=== PATIENT | female | born 1970 | race Two or more races ===

== ENCOUNTER → 2018-01-27 | Outpatient (CLI) | payer BC ==
[2018-01-27 08:42] LABS: Basophils # (auto) 0 uL; Basophils % (auto) 0.7 % (0.0-2.0); Eosinophils # (auto) 0.1 uL; Eosinophils % (auto) 2.7 % (0.0-7.0); Hematocrit 38.1 % (36.0-46.0); Hemoglobin 12.1 g/dL (12.2-16.2); Lymphocytes # (auto) 1.2 uL; Lymphocytes % (auto) 21.8 % (10.0-50.0); Mean Corpuscular Hemoglobin 27.2 pg (28.0-32.0); Mean Corpuscular Hgb Conc. 31.7 g/dL (32.0-36.0); Mean Corpuscular Volume 85.9 fL (80.0-100.0); Monocytes # (auto) 0.3 uL; Monocytes % (auto) 5.5 % (0.0-12.0); Neutrophils # (auto) 3.8 uL; Neutrophils % (auto) 69.3 % (37.0-80.0); Nucleated Red Blood Cells % 0.1 %; Platelet Count (auto) 222 10^3/uL (140-450); Red Blood Cells 4.43 10^6/uL (4.0-5.20); Red Cell Distribution Width 14.6 % (11.8-14.3); White Blood Cell 5.5 10^3/uL (4.4-10.8)
[2018-01-27 08:49] LABS: Urine Bacteria NONE SEEN /hpf (None Seen); Urine Blood 1+ /uL (Negative); Urine Specific Gravity 1.015 (1.001-1.035); Urine WBC 5 /hpf (0 - 5)
[2018-01-27 09:09] LABS: Albumin 3.6 g/dL (3.4-5.0); BUN/Creatinine Ratio 13.6; Bilirubin, Total 0.4 mg/dL (0.2-1.0); Calcium 8.6 mg/dL (8.5-10.1); Potassium 4.3 mmol/L (3.5-5.1); Total Protein 7.4 g/dL (6.4-8.2)
== END | disposition home or self-care (01) ==
LOC: LAB 08:11
PROVIDERS: ATTEND Internal Medicine
DX: E03.9 Hypothyroidism, unspecified (principal); R00.2 Palpitations
CPT/HCPCS: 36415; 80053; 80061; 81001; 83036; 84439; 84443; 85025; 85652

== ENCOUNTER → 2018-07-14 | Outpatient (CLI) | payer BC, OTHER ==
[2018-07-14 11:25] LABS: Hepatitis B Surface Antibody Positive
== END | disposition home or self-care (01) ==
LOC: LAB 10:25
PROVIDERS: ATTEND Nurse Practitioner
DX: S61.255A Open bite of left ring finger without damage to nail, initial encounter (principal); Z77.21 Contact with and (suspected) exposure to potentially hazardous body fluids; X58.XXXA Exposure to other specified factors, initial encounter; Y93.89 Activity, other specified; Y92.89 Other specified places as the place of occurrence of the external cause; Y99.8 Other external cause status
CPT/HCPCS: 36415; 86703; 86706; 86803; 87340

== ENCOUNTER → 2018-09-02 | Outpatient (CLI) | payer OTHER | END | disposition home or self-care (01) | LOC: LAB 09:16 | PROVIDERS: ATTEND Preventive Medicine Preventive Medicine/Occupational Environmental Medicine | DX: S61.233A Puncture wound without foreign body of left middle finger without damage to nail, initial encounter (principal); Z77.21 Contact with and (suspected) exposure to potentially hazardous body fluids; X58.XXXA Exposure to other specified factors, initial encounter; Y93.89 Activity, other specified; Y92.89 Other specified places as the place of occurrence of the external cause; Y99.8 Other external cause status | CPT/HCPCS: 36415; 86703; 86706; 86803; 87340 ==

== ENCOUNTER → 2018-09-05 | Outpatient (CLI) | payer BC ==
[2018-09-05 10:36] LABS: Basophils # (auto) 0 uL; Basophils % (auto) 0.5 % (0.0-2.0); Eosinophils # (auto) 0.1 uL; Eosinophils % (auto) 2.6 % (0.0-7.0); Hematocrit 39.9 % (36.0-46.0); Lymphocytes # (auto) 1.6 uL; Lymphocytes % (auto) 30.9 % (10.0-50.0); Mean Corpuscular Hemoglobin 30.1 pg (28.0-32.0); Mean Corpuscular Hgb Conc. 32.6 g/dL (32.0-36.0); Mean Corpuscular Volume 92.4 fL (80.0-100.0); Monocytes # (auto) 0.5 uL; Monocytes % (auto) 9.2 % (0.0-12.0); Neutrophils % (auto) 56.8 % (37.0-80.0); Nucleated Red Blood Cells % 0.1 %; Platelet Count (auto) 185 10^3/uL (140-450); Red Blood Cells 4.32 10^6/uL (4.0-5.20); Red Cell Distribution Width 14.3 % (11.8-14.3); White Blood Cell 5.2 10^3/uL (4.4-10.8)
[2018-09-05 10:49] LABS: Potassium 3.8 mmol/L (3.5-5.1)
[2018-09-05 10:54] LABS: Calcium 8.7 mg/dL (8.5-10.1)
[2018-09-05 10:59] LABS: Albumin 3.9 g/dL (3.4-5.0); Bilirubin, Total 0.4 mg/dL (0.2-1.0); Total Protein 7.8 g/dL (6.4-8.2)
[2018-09-05 11:03] LABS: Free T4 (Free Thyroxine) 1.18 ng/dL (0.89-1.76)
== END | disposition home or self-care (01) ==
LOC: LAB 10:07
PROVIDERS: ATTEND Internal Medicine
DX: Z86.39 Personal history of other endocrine, nutritional and metabolic disease (principal)
CPT/HCPCS: 36415; 80053; 82150; 82607; 83540; 83690; 84439; 84443; 85025; 85652

== ENCOUNTER → 2019-02-13 | Outpatient (CLI) | payer BC, OTHER ==
[2019-02-16 11:26] LABS: Hepatitis B Surface Antibody Positive
[2019-02-16 13:18] LABS: Hepatitis B Surface Antigen Negative (Negative)
== END | disposition home or self-care (01) ==
LOC: LAB 08:11
PROVIDERS: ATTEND Nurse Practitioner
DX: S61.233D Puncture wound without foreign body of left middle finger without damage to nail, subsequent encounter (principal); Z77.21 Contact with and (suspected) exposure to potentially hazardous body fluids; X58.XXXD Exposure to other specified factors, subsequent encounter
CPT/HCPCS: 36415; 86703; 86706; 86803; 87340

== ENCOUNTER → 2019-05-04 | Outpatient (CLI) | payer BC ==
[2019-05-04 09:36] LABS: Basophils # (auto) 0 uL; Eosinophils # (auto) 0.2 uL; Lymphocytes # (auto) 1.2 uL; Monocytes # (auto) 0.4 uL; Monocytes % (auto) 8.8 % (0.0-12.0); Neutrophils # (auto) 2.3 uL; Platelet Count (auto) 259 10^3/uL (140-450)
[2019-05-04 09:37] LABS: Basophils % (auto) 0.8 % (0.0-2.0); Eosinophils % (auto) 4.1 % (0.0-7.0); Hematocrit 32.9 % (36.0-46.0); Hemoglobin 10.4 g/dL (12.2-16.2); Lymphocytes % (auto) 29.6 % (10.0-50.0); Mean Corpuscular Hemoglobin 24.9 pg (28.0-32.0); Mean Corpuscular Hgb Conc. 31.7 g/dL (32.0-36.0); Mean Corpuscular Volume 78.5 fL (80.0-100.0); Neutrophils % (auto) 56.7 % (37.0-80.0); Red Blood Cells 4.19 10^6/uL (4.0-5.20); Red Cell Distribution Width 16.5 % (11.8-14.3); White Blood Cell 4.1 10^3/uL (4.4-10.8)
[2019-05-04 10:29] LABS: Albumin 3.7 g/dL (3.4-5.0); Calcium 8.6 mg/dL (8.5-10.1); Potassium 3.9 mmol/L (3.5-5.1)
[2019-05-04 10:33] LABS: BUN/Creatinine Ratio 9.5; Bilirubin, Total 0.5 mg/dL (0.2-1.0); Total Protein 7.4 g/dL (6.4-8.2)
== END | disposition home or self-care (01) ==
LOC: LAB 09:12
PROVIDERS: ATTEND Internal Medicine
DX: K21.9 Gastro-esophageal reflux disease without esophagitis (principal); R10.9 Unspecified abdominal pain
CPT/HCPCS: 36415; 80053; 82150; 83690; 84439; 84443; 85025; 86677

== ENCOUNTER → 2019-07-21 | Outpatient (CLI) | payer BC, OTHER ==
[2019-07-23 08:47] LABS: Hepatitis B Surface Antibody Positive
[2019-07-23 13:02] LABS: Hepatitis B Surface Antigen Negative (Negative)
== END | disposition home or self-care (01) ==
LOC: LAB 07:44
PROVIDERS: ATTEND Preventive Medicine Preventive Medicine/Occupational Environmental Medicine
DX: S61.233A Puncture wound without foreign body of left middle finger without damage to nail, initial encounter (principal); X58.XXXA Exposure to other specified factors, initial encounter; Y93.89 Activity, other specified; Y92.89 Other specified places as the place of occurrence of the external cause; Y99.8 Other external cause status; Z77.21 Contact with and (suspected) exposure to potentially hazardous body fluids
CPT/HCPCS: 36415; 86703; 86706; 86803; 87340

== ENCOUNTER → 2019-09-25 | Outpatient (CLI) | payer BC ==
[2019-09-25 08:00] LABS: Basophils # (auto) 0 10 ^3/uL (0-0.2); Basophils % (auto) 0.5 % (0.0-2.0); Eosinophils # (auto) 0.1 10 ^3/uL (0-0.8); Eosinophils % (auto) 2.3 % (0.0-7.0); Hematocrit 38.3 % (36.0-46.0); Hemoglobin 12.1 g/dL (12.2-16.2); Lymphocytes # (auto) 1.1 10 ^3/uL (0.4-5.4); Lymphocytes % (auto) 18.6 % (10.0-50.0); Mean Corpuscular Hemoglobin 28.1 pg (28.0-32.0); Mean Corpuscular Hgb Conc. 31.6 g/dL (32.0-36.0); Mean Corpuscular Volume 89.2 fL (80.0-100.0); Monocytes # (auto) 0.4 10 ^3/uL (0-1.3); Monocytes % (auto) 6.2 % (0.0-12.0); Neutrophils # (auto) 4.5 10 ^3/uL (1.6-8.6); Neutrophils % (auto) 72.4 % (37.0-80.0); Platelet Count (auto) 230 10^3/uL (140-450); Red Cell Distribution Width 14.2 % (11.8-14.3); White Blood Cell 6.2 10^3/uL (4.4-10.8)
[2019-09-25 09:14] LABS: Potassium 3.4 mmol/L (3.5-5.1)
[2019-09-25 09:22] LABS: Albumin 3.9 g/dL (3.4-5.0); Bilirubin, Total 0.5 mg/dL (0.2-1.0); Calcium 8.6 mg/dL (8.5-10.1); Total Protein 7.5 g/dL (6.4-8.2)
[2019-09-25 09:48] LABS: % Iron Saturation 7.4 % (15-50)
== END | disposition home or self-care (01) ==
LOC: LAB 07:36
PROVIDERS: ATTEND Internal Medicine
DX: D64.9 Anemia, unspecified (principal); R10.9 Unspecified abdominal pain
CPT/HCPCS: 36415; 80053; 82150; 82607; 83540; 83550; 83615; 83690; 85025

== ENCOUNTER → 2019-12-11 | Day surgery (SDC) | payer BC ==
[2019-12-09 10:29] LABS: Basophils # (auto) 0 10 ^3/uL (0-0.2); Basophils % (auto) 0.3 % (0.0-2.0); Eosinophils # (auto) 0.2 10 ^3/uL (0-0.8); Eosinophils % (auto) 2.7 % (0.0-7.0); Hematocrit 41.5 % (36.0-46.0); Hemoglobin 13.5 g/dL (12.2-16.2); Lymphocytes # (auto) 1.5 10 ^3/uL (0.4-5.4); Lymphocytes % (auto) 25.9 % (10.0-50.0); Mean Corpuscular Hemoglobin 28.9 pg (28.0-32.0); Mean Corpuscular Hgb Conc. 32.5 g/dL (32.0-36.0); Mean Corpuscular Volume 88.8 fL (80.0-100.0); Monocytes # (auto) 0.5 10 ^3/uL (0-1.3); Neutrophils # (auto) 3.6 10 ^3/uL (1.6-8.6); Neutrophils % (auto) 63.1 % (37.0-80.0); Nucleated Red Blood Cells % 0.1 %; Platelet Count (auto) 214 10^3/uL (140-450); Red Blood Cells 4.67 10^6/uL (4.0-5.20); Red Cell Distribution Width 16.4 % (11.8-14.3); White Blood Cell 5.6 10^3/uL (4.4-10.8)
[2019-12-09 10:44] LABS: Partial Thromboplastin Time 26.7 sec (23.64-32.05)
[~2019-12-11] VITALS: Ht 157.5 cm; Wt 57.0 kg
[~2019-12-11] MED LIST: FERR-20 PO; LIDOCAINE VISCOUS 2% 15ML UD ONE; PROP1TAB59 PO; SODIUM CHLORIDE LOCK 10 ML ONE; diphenhdrAMINE HCL 50 MG/1 ML VL ONE
[2019-12-11] MEDS: fentaNYL CITRATE 100 MCG/2 ML VL ONE ×3 (12:06→12:15)
[2019-12-11] MEDS: MIDAZOLAM HCL 5 MG/ML-1ML VIAL ONE ×4 (12:06→12:19)
[2019-12-11 12:53] VITALS: BP 104/64
== END | disposition home or self-care (01) ==
LOC: GI 10:39
PROVIDERS: ATTEND Internal Medicine Gastroenterology
DX: R19.4 Change in bowel habit (principal); K29.50 Unspecified chronic gastritis without bleeding; K57.30 Diverticulosis of large intestine without perforation or abscess without bleeding; K64.8 Other hemorrhoids; K29.90 Gastroduodenitis, unspecified, without bleeding; K44.9 Diaphragmatic hernia without obstruction or gangrene; K21.9 Gastro-esophageal reflux disease without esophagitis; E05.00 Thyrotoxicosis with diffuse goiter without thyrotoxic crisis or storm; Z11.59 Encounter for screening for other viral diseases
CPT/HCPCS: 36415; 43239; 45378; 84702; 85025; 85610; 85730; J2250; J3010; J7030; U0003; 99152; 99153

== ENCOUNTER → 2020-03-30 | Outpatient (CLI) | payer BC ==
[~2020-03-30] MED LIST changes: -LIDOCAINE VISCOUS 2% 15ML UD ONE; -SODIUM CHLORIDE LOCK 10 ML ONE; -diphenhdrAMINE HCL 50 MG/1 ML VL ONE
[2020-03-30 10:04] LABS: Urine Bacteria NONE SEEN /hpf (None Seen); Urine Blood Negative /uL (Negative); Urine Mucus FEW (None Seen); Urine WBC 1 /hpf (0 - 5)
[2020-03-31 09:19] LABS: Hepatitis B Surface Antibody Positive
[2020-03-31 10:32] LABS: Hepatitis B Surface Antigen Negative (Negative)
== END | disposition home or self-care (01) ==
LOC: LAB 09:25
PROVIDERS: ATTEND Internal Medicine
DX: E87.6 Hypokalemia (principal); R10.9 Unspecified abdominal pain; Z77.21 Contact with and (suspected) exposure to potentially hazardous body fluids
CPT/HCPCS: 36415; 80061; 81001; 83540; 84132; 84439; 84443; 86703; 86706; 86803; 87340

== ENCOUNTER → 2020-04-07 | Outpatient (CLI) | payer BC ==
[2020-04-07 13:49] LABS: Basophils # (auto) 0 10 ^3/uL (0-0.2); Basophils % (auto) 0.4 % (0.0-2.0); Eosinophils # (auto) 0.1 10 ^3/uL (0-0.8); Eosinophils % (auto) 1.2 % (0.0-7.0); Hematocrit 39.9 % (36.0-46.0); Lymphocytes % (auto) 14.9 % (10.0-50.0); Mean Corpuscular Hemoglobin 28.8 pg (28.0-32.0); Mean Corpuscular Hgb Conc. 32.5 g/dL (32.0-36.0); Mean Corpuscular Volume 88.6 fL (80.0-100.0); Monocytes # (auto) 0.4 10 ^3/uL (0-1.3); Monocytes % (auto) 5.4 % (0.0-12.0); Neutrophils # (auto) 5.3 10 ^3/uL (1.6-8.6); Neutrophils % (auto) 78.1 % (37.0-80.0); Platelet Count (auto) 214 10^3/uL (140-450); Red Cell Distribution Width 13.9 % (11.8-14.3); White Blood Cell 6.8 10^3/uL (4.4-10.8)
[2020-04-07 14:13] LABS: Albumin 3.6 g/dL (3.4-5.0); Calcium 8.7 mg/dL (8.5-10.1); Potassium 3.8 mmol/L (3.5-5.1)
[2020-04-07 14:16] LABS: Bilirubin, Total 0.4 mg/dL (0.2-1.0); Total Protein 7.3 g/dL (6.4-8.2)
== END | disposition home or self-care (01) ==
LOC: LAB 13:29
PROVIDERS: ATTEND Internal Medicine
DX: K52.9 Noninfective gastroenteritis and colitis, unspecified (principal)
CPT/HCPCS: 36415; 80053; 85025; 85652; 87177

== ENCOUNTER → 2020-04-11 | Outpatient (CLI) | payer OTHER | END | disposition home or self-care (01) | LOC: LAB 09:42 | PROVIDERS: ATTEND Nurse Practitioner Family | DX: Z20.828 Contact with and (suspected) exposure to other viral communicable diseases (principal) | CPT/HCPCS: C9803; U0003 ==

== ENCOUNTER → 2020-06-21 | Outpatient (CLI) | payer BC, OTHER | END | disposition home or self-care (01) | LOC: XY 07:48 | PROVIDERS: ATTEND Internal Medicine | DX: R10.13 Epigastric pain (principal) | CPT/HCPCS: 78226; A9537 ==

== ENCOUNTER → 2020-08-18 | Outpatient (CLI) | payer BC ==
[2020-08-18 09:33] LABS: Hepatitis B Surface Antibody Positive
[2020-08-18 14:50] LABS: Hepatitis B Surface Antigen Negative (Negative)
== END | disposition home or self-care (01) ==
LOC: LAB 08:32
PROVIDERS: ATTEND Nurse Practitioner
DX: Z77.21 Contact with and (suspected) exposure to potentially hazardous body fluids (principal)
CPT/HCPCS: 36415; 86703; 86706; 86803; 87340

== ENCOUNTER → 2020-11-22 | Outpatient (CLI) | payer BC ==
[2020-11-22 12:28] LABS: Albumin 3.3 g/dL (3.4-5.0); Potassium 4.2 mmol/L (3.5-5.1)
[2020-11-22 12:31] LABS: BUN/Creatinine Ratio 15.6; Bilirubin, Total 0.4 mg/dL (0.2-1.0); Total Protein 6.4 g/dL (6.4-8.2)
== END | disposition home or self-care (01) ==
LOC: LAB 11:07
PROVIDERS: ATTEND Internal Medicine
DX: R10.9 Unspecified abdominal pain (principal)
CPT/HCPCS: 36415; 80053; 82150; 83690